=== PATIENT | female | born 1995 | race Caucasian/White ===

== ENCOUNTER 2019-01-05 15:33 | Outpatient (CLI) | payer OTHER | END 2019-01-05 17:50 | disposition home or self-care (01) | LOC: OBT 15:33 → L-D 15:34 → OBT 17:50 | DX: O28.9 Unspecified abnormal findings on antenatal screening of mother (principal); Z3A.36 36 weeks gestation of pregnancy | CPT/HCPCS: 76818 ==

== ENCOUNTER 2019-01-08 14:25 | Outpatient (CLI) | payer OTHER | END 2019-01-08 15:58 | disposition home or self-care (01) | LOC: OBT 14:25 → L-D 14:25 → OBT 15:58 | DX: O28.9 Unspecified abnormal findings on antenatal screening of mother (principal); Z3A.36 36 weeks gestation of pregnancy | CPT/HCPCS: 76818 ==

== ENCOUNTER 2019-01-11 11:09 | Outpatient (CLI) | payer OTHER | END 2019-01-11 12:32 | disposition home or self-care (01) | LOC: OBT 11:09 → L-D 11:09 → OBT 12:32 | DX: O36.8330 Maternal care for abnormalities of the fetal heart rate or rhythm, third trimester, not applicable or unspecified (principal); Z3A.37 37 weeks gestation of pregnancy | CPT/HCPCS: 76818 ==

== ENCOUNTER 2019-01-17 13:10 | Inpatient (IN) | payer OTHER ==
[2019-01-17 13:45] LABS: ADD MAN DIFF? NO
[2019-01-17 13:47] LABS: WHITE BLOOD COUNT 10.8 10^3/ul (4.8-10.8)
[2019-01-17 13:47] LABS: BASOPHILS % 0.2 % (0.0-2.0); EOSINOPHILS % 0.2 % (0.0-7.0); HEMATOCRIT 36.6 % (37.0-47.0); HEMOGLOBIN 12.5 g/dl (12.0-16.0); LYMPHOCYTES # 1.5 10^3/ul (0.8-2.9); LYMPHOCYTES % 13.4 % (15.0-51.0); MEAN CORPUSCULAR HEMOGLOBIN 30.3 pg (29.0-33.0); MEAN CORPUSCULAR HGB CONC 34.2 g/dl (32.0-37.0); MEAN CORPUSCULAR VOLUME 88.8 fl (82.0-101.0); MEAN PLATELET VOLUME 12.2 fl (7.4-10.4); MONOCYTE # 0.6 10^3/ul (0.3-0.9); MONOCYTES % 5.6 % (0.0-11.0); NEUTROPHIL # 8.7 10^3/ul (1.6-7.5); NEUTROPHILS % 79.9 % (39.0-77.0); PLATELET COUNT 128 10^3/UL (140-415); RED BLOOD COUNT 4.12 10^6/ul (4.20-5.40); RED CELL DISTRIBUTION WIDTH 12.6 % (11.5-14.5)
[2019-01-17 13:55] LABS: ADD UMIC YES; UR ASCORBIC ACID 20 mg/dL (NEGATIVE); UR BILIRUBIN (Dip) NEGATIVE (NEGATIVE); UR BLOOD (Dip) NEGATIVE (NEGATIVE); UR CLARITY CLEAR (CLEAR); UR COLOR YELLOW (YELLOW); UR GLUCOSE (Dip) NEGATIVE (NEGATIVE); UR KETONES (Dip) NEGATIVE (NEGATIVE); UR LEUKOCYTE ESTERASE (Dip) 1+ Leu/ul (NEGATIVE); UR NITRITE (Dip) NEGATIVE (NEGATIVE); UR RBC 1 /HPF (0-5); UR SPECIFIC GRAVITY (Dip) 1.015 (1.003-1.030); UR SQUAMOUS EPITHELIAL CELL FEW /HPF (FEW); UR TOTAL PROTEIN (Dip) NEGATIVE (NEGATIVE); UR UROBILINOGEN (Dip) NEGATIVE (NEGATIVE); UR WBC 1 /HPF (0-5)
[2019-01-17 14:05] LABS: ALANINE AMINOTRANSFERASE 12 IU/L (13-69); ALBUMIN 3.5 g/dl (3.3-4.9); ALBUMIN/GLOBULIN RATIO 1.12; ALKALINE PHOSPHATASE 166 IU/L (42-121); ANION GAP 8 (5-13); ASPARTATE AMINO TRANSFERASE 19 IU/L (15-46); BILIRUBIN,INDIRECT 0.2 mg/dl (0-1.1); BILIRUBIN,TOTAL 0.2 mg/dl (0.2-1.3); BLOOD UREA NITROGEN 9 mg/dl (7-20); CALCIUM 9.6 mg/dl (8.4-10.2); CARBON DIOXIDE 24 mmol/L (21-31); CHLORIDE 103 mmol/L (97-110); CREATININE 0.54 mg/dl (0.44-1.00); Estimated GFR > 60 mL/min (>60); GLUCOSE 110 mg/dl (70-220); POTASSIUM 3.9 mmol/L (3.5-5.1); SODIUM 135 mmol/L (135-144); TOTAL PROTEIN 6.6 g/dl (6.1-8.1); URIC ACID 5.5 mg/dl (3.1-7.9)
[2019-01-17 14:16] LABS: INR 0.89; PROTIME 12.2 Sec (11.9-14.9)
[2019-01-17 14:17] LABS: PARTIAL THROMBOPLASTIN TIME 26.8 Sec (23.0-35.0)
[2019-01-17] MEDS ORDERED: CARBOPROST 250 MCG INJ IM (15:00)
[2019-01-17] MEDS ORDERED: METHYLERGONOVINE 0.2 MG INJ IM (15:00)
[2019-01-17] MEDS ORDERED: OXYTOCIN 30 UNITS/LR 500 ML IV ×2 (15:00)
[2019-01-17] MEDS ORDERED: OXYCODONE/ASPIRIN (4.88/325) TAB PO (15:00)
[2019-01-17] MEDS ORDERED: MISOPROSTOL 200 MCG TAB PR (15:00)
[2019-01-17] MEDS ORDERED: BUTORPHANOL 2 MG INJ IV (15:00)
[2019-01-17] MEDS ORDERED: LIDOCAINE 1% (MPF) 30 ML INJ INJ (15:00)
[2019-01-17] MEDS ORDERED: IBUPROFEN 600 MG TAB PO (15:00)
[2019-01-17] MEDS: LACTATED RINGER'S 1,000 ML IV ×2 (15:49→21:28)
[2019-01-17] MEDS: MISOPROSTOL 50 MCG CAPSULE PO ×2 (15:55→20:29)
[2019-01-18] MEDS: MISOPROSTOL 50 MCG CAPSULE PO ×7 (00:54→21:00)
[2019-01-18] MEDS: LACTATED RINGER'S 1,000 ML IV ×3 (05:09→22:01)
[2019-01-18 17:18] LABS: ADD MAN DIFF? NO
[2019-01-18 17:19] LABS: WHITE BLOOD COUNT 9.2 10^3/ul (4.8-10.8)
[2019-01-18 17:19] LABS: BASOPHILS % 0.1 % (0.0-2.0); EOSINOPHILS % 0.2 % (0.0-7.0); HEMOGLOBIN 11.7 g/dl (12.0-16.0); LYMPHOCYTES # 1.4 10^3/ul (0.8-2.9); LYMPHOCYTES % 15.7 % (15.0-51.0); MEAN CORPUSCULAR HEMOGLOBIN 30.7 pg (29.0-33.0); MEAN CORPUSCULAR HGB CONC 34.4 g/dl (32.0-37.0); MEAN CORPUSCULAR VOLUME 89.2 fl (82.0-101.0); MEAN PLATELET VOLUME 12.2 fl (7.4-10.4); MONOCYTE # 0.5 10^3/ul (0.3-0.9); MONOCYTES % 5.5 % (0.0-11.0); NEUTROPHIL # 7.1 10^3/ul (1.6-7.5); NEUTROPHILS % 77.8 % (39.0-77.0); PLATELET COUNT 108 10^3/UL (140-415); RED BLOOD COUNT 3.81 10^6/ul (4.20-5.40); RED CELL DISTRIBUTION WIDTH 12.3 % (11.5-14.5)
[2019-01-18 19:23] LABS: RAPID PLASMA REAGIN NONREACTIVE (NR)
[2019-01-18] MEDS: OXYTOCIN 30 UNITS/LR 500 ML IV (22:25)
[2019-01-19] MEDS: MISOPROSTOL 50 MCG CAPSULE PO (01:00)
[2019-01-19] MEDS ORDERED: FENTAnyl 2MCG/ML-ROPIV 0.2% 100 ML (02:42)
[2019-01-19] MEDS ORDERED: NALOXONE (0.4 MG/ML) INJ IV (03:00)
[2019-01-19] MEDS ORDERED: HYDROmorphONE 0.5 MG/0.5 ML SYG IV ×2 (03:00)
[2019-01-19] MEDS ORDERED: DIPHENHYDRAMINE 50 MG INJ IV (03:00)
[2019-01-19] MEDS ORDERED: KETOROLAC 30 MG INJ IV (03:00)
[2019-01-19] MEDS: LACTATED RINGER'S 1,000 ML IV ×4 (03:02→17:10)
[2019-01-19] MEDS: ONDANSETRON 4 MG INJ IV (07:50)
[2019-01-19] MEDS: FENTAnyl 2MCG/ML-ROPIV 0.2% 100 ML BAG EPI ×2 (10:59→18:33)
[2019-01-19 20:43] LABS: ADD MAN DIFF? NO
[2019-01-19 20:44] LABS: WHITE BLOOD COUNT 15.7 10^3/ul (4.8-10.8)
[2019-01-19 20:44] LABS: BASOPHILS % 0.1 % (0.0-2.0); HEMATOCRIT 35.5 % (37.0-47.0); LYMPHOCYTES # 1.2 10^3/ul (0.8-2.9); LYMPHOCYTES % 7.9 % (15.0-51.0); MEAN CORPUSCULAR HEMOGLOBIN 30.5 pg (29.0-33.0); MEAN CORPUSCULAR HGB CONC 33.8 g/dl (32.0-37.0); MEAN CORPUSCULAR VOLUME 90.3 fl (82.0-101.0); MEAN PLATELET VOLUME 12.9 fl (7.4-10.4); MONOCYTE # 0.9 10^3/ul (0.3-0.9); NEUTROPHIL # 13.4 10^3/ul (1.6-7.5); NEUTROPHILS % 85.5 % (39.0-77.0); PLATELET COUNT 110 10^3/UL (140-415); RED BLOOD COUNT 3.93 10^6/ul (4.20-5.40); RED CELL DISTRIBUTION WIDTH 12.3 % (11.5-14.5)
[2019-01-19] MEDS: AMPICILLIN 2 GM/NS (PMX) 100 ML IV (22:01)
[2019-01-19] MEDS: MINERAL OIL LIGHT 10 ML VIAL TOP (23:55)
[2019-01-20] MEDS: AZITHROMYCIN 500MG/NS (PMX) 250 ML IV (00:28)
[2019-01-20] MEDS ORDERED: OXYTOCIN 30 UNITS/LR 500 ML IV (00:30)
[2019-01-20] MEDS ORDERED: LIDOCAINE 1.5%/EPI MPF (SDV) 30 ML VIAL (00:40)
[2019-01-20] MEDS ORDERED: NA BICARBONATE 8.4% 50 ML SYG (00:49)
[2019-01-20] MEDS ORDERED: METOCLOPRAMIDE 10 MG INJ (00:58)
[2019-01-20] MEDS ORDERED: FAMOTIDINE 20 MG INJ (00:58)
[2019-01-20] MEDS ORDERED: PHENYLephrine (100 MCG/ML) 10ML SYG ×2 (01:00→01:37)
[2019-01-20] MEDS ORDERED: morphine SULFATE/PF (10 MG/10 ML) INJ (01:01)
[2019-01-20] MEDS ORDERED: MIDAZOLAM 1 MG/ML 2 ML INJ (01:12)
[2019-01-20] MEDS ORDERED: ONDANSETRON 4 MG INJ IV ×2 (01:30→02:30)
[2019-01-20] MEDS ORDERED: KETOROLAC 30 MG INJ IV (01:30)
[2019-01-20] MEDS ORDERED: hydrALAzine 20 MG INJ IV (01:30)
[2019-01-20] MEDS ORDERED: HYDROmorphONE 1 MG/5 ML IV SYRINGE IV ×3 (01:30)
[2019-01-20] MEDS ORDERED: DIPHENHYDRAMINE 50 MG INJ IV ×2 (01:30→02:30)
[2019-01-20] MEDS ORDERED: MEPERIDINE 25 MG INJ IV (01:30)
[2019-01-20] MEDS ORDERED: LABETALOL HCL 20MG INJ IV (01:30)
[2019-01-20] MEDS ORDERED: PROCHLORPERAZINE 10 MG INJ IV (01:30)
[2019-01-20] MEDS ORDERED: FENTAnyl 50 MCG/ML VIAL IV ×3 (01:30)
[2019-01-20] MEDS ORDERED: EPHEDrine SULFATE 50 MG/5 ML SYG IV (01:30)
[2019-01-20] MEDS: AMPICILLIN 1 GM/NS (PMX) 50 ML IV (02:25)
[2019-01-20] MEDS: KETOROLAC 30 MG INJ IV ×2 (02:28→15:56)
[2019-01-20] MEDS ORDERED: HYDROmorphONE 0.5 MG/0.5 ML SYG IV ×2 (02:30)
[2019-01-20] MEDS ORDERED: ZOLPIDEM 5 MG TAB PO (02:30)
[2019-01-20] MEDS ORDERED: NALOXONE (0.4 MG/ML) INJ IV (02:30)
[2019-01-20] MEDS: CEFAZOLIN 2 GM/50 ML (PMX) 50 ML IVPB (02:36)
[2019-01-20] MEDS: OXYTOCIN 30 UNITS/LR 500 ML IV ×2 (02:37→07:14)
[2019-01-20] MEDS: LACTATED RINGER'S 1,000 ML IV ×2 (02:37→12:29)
[2019-01-20] MEDS ORDERED: MISOPROSTOL 200 MCG TAB PR (03:00)
[2019-01-20] MEDS ORDERED: METHYLERGONOVINE 0.2 MG INJ IM (03:00)
[2019-01-20] MEDS ORDERED: CEFAZOLIN 2 GM/50 ML (PMX) 50 ML IVPB (03:00)
[2019-01-20] MEDS ORDERED: CARBOPROST 250 MCG INJ IM (03:00)
[2019-01-20] MEDS ORDERED: NA PHOSPHATE/BIPHOS 133 ML ENEMA PR (03:00)
[2019-01-20] MEDS: ACETAMINOPHEN 1000MG/100ML IV 100 ML IVPB (03:56)
[2019-01-20] MEDS: PIPER-TAZO 3.375 GM IV (PMX) 100 ML IVPB ×4 (04:00→21:43)
[2019-01-20] MEDS: IBUPROFEN 800 MG TAB PO ×3 (06:00→22:00)
[2019-01-20] MEDS: CLINDAMYCIN 300 MG CAP PO ×3 (06:06→17:12)
[2019-01-20] MEDS: LANOLIN HPA 1 PKT TOP (10:48)
[2019-01-20] MEDS: SENNA/DOCUSATE NA (8.6MG/50MG) TAB PO ×2 (10:48→21:43)
[2019-01-20] MEDS: ENOXAPARIN 40 MG/0.4 ML SYG SC (15:56)
[2019-01-20 16:56] LABS: WHITE BLOOD COUNT 17.3 10^3/ul (4.8-10.8)
[2019-01-20 16:56] LABS: ABNORMAL IP MESSAGE 1; HEMATOCRIT 27.9 % (37.0-47.0); HEMOGLOBIN 9.7 g/dl (12.0-16.0); MEAN CORPUSCULAR HEMOGLOBIN 31.3 pg (29.0-33.0); MEAN CORPUSCULAR HGB CONC 34.8 g/dl (32.0-37.0); MEAN PLATELET VOLUME 12.3 fl (7.4-10.4); PLATELET COUNT 92 10^3/UL (140-415); RED CELL DISTRIBUTION WIDTH 12.6 % (11.5-14.5)
[2019-01-20 17:02] LABS: ADD MAN DIFF? YES; POSITIVE DIFF @See below
[2019-01-20 17:53] LABS: ANISOCYTOSIS 2+ (0-0); BAND NEUTROPHILS #M 1.2 10^3/ul (0.0-0.6); BAND NEUTROPHILS % (M) 7 % (0-4); LYMPHOCYTES #M 1.7 10^3/ul (0.8-2.9); LYMPHOCYTES % (M) 10 % (15-51); MICROCYTOSIS 2+ (0-0); MONOCYTE #M 0.5 10^3/ul (0.3-0.9); MONOCYTES % (M) 3 % (0-11); PLATELET ESTIMATE DECREASED; POLYCHROMASIA 3+ (0-0); SEGMENTED NEUTROPHILS (M) % 80 % (39-77); SMUDGE%M 2 % (0-0)
[2019-01-20] MEDS: BISACODYL 10 MG SUPP PR (21:43)
[2019-01-21] MEDS: KETOROLAC 30 MG INJ IV (00:14)
[2019-01-21] MEDS: CLINDAMYCIN 300 MG CAP PO ×3 (00:15→12:08)
[2019-01-21] MEDS: LACTATED RINGER'S 1,000 ML IV (00:15)
[2019-01-21] MEDS: PIPER-TAZO 3.375 GM IV (PMX) 100 ML IVPB ×2 (04:28→10:14)
[2019-01-21] MEDS: IBUPROFEN 800 MG TAB PO ×3 (05:34→22:30)
[2019-01-21] MEDS: OXYCODONE/ACETAMINOPHEN (5/325) TAB PO ×2 (06:29→10:15)
[2019-01-21 08:30] LABS: ABNORMAL IP MESSAGE 1; ADD MAN DIFF? NO; BASOPHILS % 0.2 % (0.0-2.0); EOSINOPHILS % 0.2 % (0.0-7.0); HEMATOCRIT 29.5 % (37.0-47.0); HEMOGLOBIN 10.1 g/dl (12.0-16.0); LYMPHOCYTES # 1.4 10^3/ul (0.8-2.9); LYMPHOCYTES % 9.6 % (15.0-51.0); MEAN CORPUSCULAR HGB CONC 34.2 g/dl (32.0-37.0); MEAN CORPUSCULAR VOLUME 90.5 fl (82.0-101.0); MEAN PLATELET VOLUME 12.6 fl (7.4-10.4); MONOCYTE # 0.8 10^3/ul (0.3-0.9); MONOCYTES % 5.3 % (0.0-11.0); NEUTROPHIL # 12.6 10^3/ul (1.6-7.5); NEUTROPHILS % 83.9 % (39.0-77.0); PLATELET COUNT 94 10^3/UL (140-415); RED BLOOD COUNT 3.26 10^6/ul (4.20-5.40); RED CELL DISTRIBUTION WIDTH 12.5 % (11.5-14.5)
[2019-01-21 08:53] LABS: POSITIVE DIFF @See below
[2019-01-21] MEDS: SENNA/DOCUSATE NA (8.6MG/50MG) TAB PO ×2 (10:06→21:00)
[2019-01-21] MEDS: ENOXAPARIN 40 MG/0.4 ML SYG SC (10:13)
[2019-01-21] MEDS: CIPROFLOXACIN 500 MG TAB PO ×2 (14:20→17:28)
[2019-01-21] MEDS: CLINDAMYCIN 900 MG/D5W (PMX) 50 ML IVPB ×2 (17:29→23:32)
[2019-01-21] MEDS: GENTAMICIN 80 MG/NS (PMX) 50 ML IVPB (17:29)
[2019-01-21] MEDS: HYDROCODONE/APAP (5/325) TAB PO (20:50)
[2019-01-22] MEDS: GENTAMICIN 80 MG/NS (PMX) 50 ML IVPB ×3 (01:30→17:32)
[2019-01-22] MEDS: CLINDAMYCIN 900 MG/D5W (PMX) 50 ML IVPB ×4 (05:33→23:50)
[2019-01-22] MEDS: CIPROFLOXACIN 500 MG TAB PO ×2 (05:33→17:30)
[2019-01-22] MEDS: IBUPROFEN 800 MG TAB PO ×3 (05:34→21:44)
[2019-01-22] MEDS: HYDROCODONE/APAP (5/325) TAB PO (06:40)
[2019-01-22 08:16] LABS: ADD MAN DIFF? NO
[2019-01-22 08:19] LABS: BASOPHILS % 0.2 % (0.0-2.0); EOSINOPHILS % 0.4 % (0.0-7.0); HEMATOCRIT 29.8 % (37.0-47.0); HEMOGLOBIN 10.2 g/dl (12.0-16.0); LYMPHOCYTES # 1.3 10^3/ul (0.8-2.9); LYMPHOCYTES % 11.6 % (15.0-51.0); MEAN CORPUSCULAR HEMOGLOBIN 30.8 pg (29.0-33.0); MEAN CORPUSCULAR HGB CONC 34.2 g/dl (32.0-37.0); MEAN PLATELET VOLUME 12.3 fl (7.4-10.4); MONOCYTE # 0.8 10^3/ul (0.3-0.9); MONOCYTES % 6.9 % (0.0-11.0); NEUTROPHIL # 8.7 10^3/ul (1.6-7.5); NEUTROPHILS % 79.9 % (39.0-77.0); PLATELET COUNT 120 10^3/UL (140-415); RED BLOOD COUNT 3.31 10^6/ul (4.20-5.40); RED CELL DISTRIBUTION WIDTH 12.5 % (11.5-14.5)
[2019-01-22 08:19] LABS: WHITE BLOOD COUNT 10.9 10^3/ul (4.8-10.8)
[2019-01-22] MEDS: SENNA/DOCUSATE NA (8.6MG/50MG) TAB PO ×2 (09:28→21:00)
[2019-01-22] MEDS: ENOXAPARIN 40 MG/0.4 ML SYG SC (09:31)
[2019-01-22] MEDS ORDERED: ACETAMINOPHEN 325 MG TAB PO ×2 (18:30)
[2019-01-22] MEDS: DIPHTH/TET/ACEL PERTUSS (ADULT) 0.5 ML VIAL IM* (19:30)
[2019-01-23] MEDS: GENTAMICIN 80 MG/NS (PMX) 50 ML IVPB ×2 (00:47→08:45)
[2019-01-23] MEDS: IBUPROFEN 800 MG TAB PO (06:01)
[2019-01-23] MEDS: CLINDAMYCIN 900 MG/D5W (PMX) 50 ML IVPB ×2 (06:01→12:00)
[2019-01-23] MEDS: CIPROFLOXACIN 500 MG TAB PO (06:01)
[2019-01-23] MEDS: SENNA/DOCUSATE NA (8.6MG/50MG) TAB PO (08:41)
[2019-01-23] MEDS: ENOXAPARIN 40 MG/0.4 ML SYG SC (08:44)
[2019-01-23 08:46] LABS: ADD MAN DIFF? NO
[2019-01-23 08:50] LABS: BASOPHILS % 0.2 % (0.0-2.0); EOSINOPHILS # 0.2 10^3/ul (0.0-0.5); EOSINOPHILS % 1.5 % (0.0-7.0); HEMATOCRIT 31.7 % (37.0-47.0); HEMOGLOBIN 10.9 g/dl (12.0-16.0); LYMPHOCYTES # 1.2 10^3/ul (0.8-2.9); LYMPHOCYTES % 12.1 % (15.0-51.0); MEAN CORPUSCULAR HEMOGLOBIN 30.8 pg (29.0-33.0); MEAN CORPUSCULAR HGB CONC 34.4 g/dl (32.0-37.0); MEAN CORPUSCULAR VOLUME 89.5 fl (82.0-101.0); MEAN PLATELET VOLUME 11.4 fl (7.4-10.4); MONOCYTE # 0.7 10^3/ul (0.3-0.9); MONOCYTES % 7.2 % (0.0-11.0); NEUTROPHIL # 7.8 10^3/ul (1.6-7.5); PLATELET COUNT 163 10^3/UL (140-415); RED BLOOD COUNT 3.54 10^6/ul (4.20-5.40); RED CELL DISTRIBUTION WIDTH 12.6 % (11.5-14.5)
[2019-01-23] MEDS: OXYCODONE/ACETAMINOPHEN (5/325) TAB PO (08:50)
[2019-01-23] MEDS ORDERED: MEASLES,MUMPS,RUBELLA VACCINE INJ SC* (09:00)
== END 2019-01-23 14:37 | disposition home or self-care (01) | DRG 788 ==
LOC: OBT 13:10 → L-D 01-20 00:36 → PP1 01-20 04:32 → OBT 14:41 → L-D 14:40
PROC: 10D00Z1 Extraction of Products of Conception, Low, Open Approach (ICD-10-PCS; principal; 2019-01-20 01:00)
PROC: 3E033VJ Introduction of Other Hormone into Peripheral Vein, Percutaneous Approach (ICD-10-PCS; 2019-01-20 01:00)
DX: O13.4 Gestational [pregnancy-induced] hypertension without significant proteinuria, complicating childbirth (principal); O62.1 Secondary uterine inertia; Z3A.38 38 weeks gestation of pregnancy; Z37.0 Single live birth
CPT/HCPCS: 62322; 76815; 76818; 80053; 81001; 83605; 84560; 85025; 85384; 85610; 85730; 86592; 86850; 86900; 86901; 87040-91; 87086; 90715; 99464